=== PATIENT | female | born 1945 | race Caucasian/White ===

== ENCOUNTER 2016-12-12 03:52 | Inpatient (IN) | payer OTHER, MEDICARE ==
[2016-12-12] VITALS (8 sets, daily range): BP systolic 137–158; BP diastolic 60–80; PULSE 78–98; RESP 16–22; TEMP 98–98.6; O2SAT 95–97
[~2016-12-12 03:52] MED LIST: ASPI81 PO; BIOT2500 PO; CALC250T PO; FISH1000 PO; GLUC500C56 PO; LACT20SO4 PO; MIRA33502 PO; PRIN20TA2 PO; TAB-TAB PO
[2016-12-12] MEDS ORDERED: GLUC500C5 PO (04:13)
[2016-12-12] MEDS ORDERED: CALC600T4 PO (04:13)
[2016-12-12] MEDS ORDERED: ATOR20TA15 PO (04:13)
[2016-12-12] MEDS ORDERED: CELE1CAP8 PO (04:13)
[2016-12-12] MEDS ORDERED: LISI-515 PO (04:13)
[2016-12-12] MEDS ORDERED: LORA1POW7 (04:13)
--- NOTE | 2016-12-12 04:15 | PD ---
HPI Chief Complaint: Cold / Flu Symptoms Time Seen by Provider: 04:02 Travel History International Travel<30 days: No Contact w/Intl Traveler<30days: No Traveled to known affect area: No History of Present Illness HPI 71-year-old female came to the emergency room with her with history of some upper airway obstruction especially after she coughs. Patient says that she developed this cough 2 weeks ago out of nowhere. She did not know what could be causing it and went to see her primary care. She was started on loratadine which she has been taking. However for past 2 days each time she expels a big cough she has difficulty breathing in. She feels like she is choking and cannot get any air in. Her voice has gotten hoarse. No history of fever or chills. She has never had these symptoms in the past. Last night when the symptoms were progressively worsening she got worried and decided to come to the emergency room. She says that her throat feels scratchy and sore. While patient was talking to me suddenly she developed a cough and just like she described after she was done with the expiratory phase of the cough and went to inhale she was unable to take a deep breath in. Her lips started to turn dusky. This lasted for 10-15 seconds. She started to struggle to breathe a little and slowly was able to catch her breath. Her color started to return back to pink again. [facility] Past Medical History Narrative Medical List of her past medical history as reviewed from the nursing note. Arthritis: Yes Cancer: No High Cholesterol: Yes Diabetes: No Diminished Hearing: No Glaucoma: No Hepatitis: Yes Hiatal Hernia: No Hypertension: Yes Thyroid Disease: No Tetanus Vaccination: Unknown Influenza Vaccination: Yes Past Surgical History Gynecologic Surgery: Yes (TUBAL LIGATION) Oral Surgery: Yes (AHE 4 T&A) Other Surgery: Yes Social History Alcohol Use: Yes (SOCIALLY) Tobacco Use: No Substance Use: No Allergies-Medications (Allergen,Severity, Reaction): Coded Allergies: Cat Dander (Verified Allergy, Intermediate, RESP DISTRESS, 12/12/16) Lortab (Verified Allergy, Intermediate, RASH, 12/12/16) Oxycodone (Verified Allergy, Intermediate, RASH, 12/12/16) Sulfa (Verified Allergy, Intermediate, SULFA, 12/12/16) Comments List of allergies reviewed from the nursing note. Reported Meds & Prescriptions Reported Meds & Active Scripts Active Reported Celecoxib 200 Mg Cap 200 Mg PO BID Lisinopril 20 Mg Tab 20 Mg PO DAILY Loratadine (Loratadine (Bulk)) 1 Pow Pow Atorvastatin (Atorvastatin Calcium) 20 Mg Tab 20 Mg PO HS Glucosamine (Glucosamine Sulfate) 500 Mg Cap 500 Mg PO DAILY Calcium Carbonate 1,500 Mg Tab 1,500 Mg PO BID 1,500 mg calcium carbonate (600 mg elemental calcium) Narrative Medication List of her home medications reviewed from the nursing note. Review of Systems Except as stated in HPI: all other systems reviewed are Neg Physical Exam Narrative GENERAL: Awake, alert, anxious SKIN: Warm and dry. HEAD: Atraumatic. Normocephalic. EYES: Pupils equal and round. No scleral icterus. No injection or drainage. ENT: No nasal bleeding or discharge. Mucous membranes pink and moist. No swelling of her tongue or lips. NECK: Trachea midline. No JVD. CARDIOVASCULAR: Regular rate and rhythm. No murmur appreciated. RESPIRATORY: No accessory muscle use. Clear to auscultation. Breath sounds equal bilaterally. GASTROINTESTINAL: Abdomen soft, non-tender, nondistended. Hepatic and splenic margins not palpable. MUSCULOSKELETAL: No obvious deformities. No clubbing. No cyanosis. No edema. NEUROLOGICAL: Awake and alert. No obvious cranial nerve deficits. Motor grossly within normal limits. Normal speech. PSYCHIATRIC: Appropriate mood and affect; insight and judgment normal. Data Data Last Documented VS Vital Signs Date Time Temp Pulse Resp B/P Pulse Ox O2 Delivery O2 Flow Rate FiO2 12/12/16 04:09 16 98 Room Air 12/12/16 03:54 98.0 85 158/80 Orders Complete Blood Count With Diff (12/12/16 04:20) Basic Metabolic Panel (Bmp) (12/12/16 04:20) Iv Access Insert/Monitor (12/12/16 04:20) Ecg Monitoring (12/12/16 04:20) Oximetry (12/12/16 04:20) Oxygen Administration (12/12/16 04:20) Chest, Single Ap (12/12/16 04:20) Sodium Chloride 0.9% Flush (Ns Flush) (12/12/16 04:30) Dexamethasone Inj (Decadron Inj) (12/12/16 04:30) Ct Soft Tiss Neck W Iv Cont (12/12/16 ) Sodium Chlorid 0.9% 500 Ml Inj (Ns 500 M (12/12/16 05:45) Iohexol 350 Inj (Omnipaque 350 Inj) (12/12/16 05:44) Admit To Inpatient (12/12/16 ) Vital Signs (Adult) Q4H (12/12/16 06:20) Activity Oob With Assistance (12/12/16 06:20) Macerator Operator / Telemetry .CONTINUOUS (12/12/16 06:20) Sodium Chloride 0.9% Flush (Ns Flush) (12/12/16 06:30) Sodium Chloride 0.9% Flush (Ns Flush) (12/12/16 09:00) Basic Metabolic Panel (Bmp) (12/13/16 06:00) Complete Blood Count With Diff (12/13/16 06:00) Scd Bilateral/Knee High DANILO.BID (12/12/16 06:20) Naloxone Inj (Narcan Inj) (12/12/16 06:30) Inpatient Certification (12/12/16 ) Consult Ent (12/12/16 ) Admit Order (Ed Use Only) (12/12/16 06:28) Labs Laboratory Tests Test 12/12/16 04:35 White Blood Count 7.5 TH/MM3 Red Blood Count 4.58 MIL/MM3 Hemoglobin 13.1 GM/DL Hematocrit 40.2 % Mean Corpuscular Volume 87.9 FL Mean Corpuscular Hemoglobin 28.6 PG Mean Corpuscular Hemoglobin 32.6 % Concent Red Cell Distribution Width 13.2 % Platelet Count 212 TH/MM3 Mean Platelet Volume 9.9 FL Neutrophils (%) (Auto) 52.6 % Lymphocytes (%) (Auto) 32.9 % Monocytes (%) (Auto) 11.6 % Eosinophils (%) (Auto) 2.2 % Basophils (%) (Auto) 0.7 % Neutrophils # (Auto) 3.9 TH/MM3 Lymphocytes # (Auto) 2.5 TH/MM3 Monocytes # (Auto) 0.9 TH/MM3 Eosinophils # (Auto) 0.2 TH/MM3 Basophils # (Auto) 0.0 TH/MM3 CBC Comment DIFF FINAL Differential Comment Sodium Level 143 MEQ/L Potassium Level 4.4 MEQ/L Chloride Level 110 MEQ/L Carbon Dioxide Level 26.4 MEQ/L Anion Gap 7 MEQ/L Blood Urea Nitrogen 22 MG/DL Creatinine 1.02 MG/DL Estimat Glomerular Filtration 54 ML/MIN Rate Random Glucose 109 MG/DL Calcium Level 8.9 MG/DL MDM Medical Decision Making Medical Screen Exam Complete: Yes Emergency Medical Condition: Yes Medical Record Reviewed: Yes Differential Diagnosis Upper airway swelling, upper airway obstruction Narrative Course 5:46 AM blood test results are back. Patient has some renal insufficiency. I ordered 10 mg of IV Decadron for her. Awaiting for the CT soft tissue of the neck with contrast to be done and resulted. I'm giving her 500 ML of IV fluid bolus. 6:[address] scan shows a mass at the base of the tongue. Radiologist is recommending direct visualization. Patient will require direct visualization by ENT under monitored conditions. I let the patient know about the diagnosis and the need for admission preferably in the ICU under monitored setting. Patient understands and has agreed. Case has been discussed with the hospitalist was accepted it. Patient says she feels a little better after receiving the Decadron. Critical Care Narrative Aggregate critical care time was 30 minutes. Time to perform other separately billable procedures was not included in the critical care time. My time did not include minutes spent treating any other patients simultaneously or on activities that did not directly contribute to the patient's treatment. The services I provided to this patient were to treat and/or prevent clinically significant deterioration that could result in: Mass at the base of the tongue, upper airway obstruction I provided critical care services requiring my management, as noted below: Chart data review, documentation time, medication orders and management, vital sign assessments/reviewing monitor data, ordering and reviewing lab tests, ordering and interpreting/reviewing x-rays and diagnostic studies, care of the patient and discussion of the patient with the admitting physicians. Procedures EKG Prior to Arrival: No Diagnosis Primary Impression: Mass of tongue Additional Impressions: mass at the base of the tongue At risk for difficult insertion of breathing tube Qualified Code: T88.4XXA - At risk for difficult insertion of breathing tube, initial encounter Difficulty breathing Admitting Information Admitting Physician Requests: Admit Scripts Dexamethasone 4 Mg Tab4 Mg PO BID #30 TAB Ref 0 Prov:Mauricio Middleton MD 12/13/16 Pantoprazole 40 Mg Tab40 Mg PO DAILY #30 TAB Prov:Mauricio Middleton MD 12/13/16 Guaifenesin ER 12 HR (Mucinex ER 12 HR)600 Mg [id number] Mg PO BID #20 TAB Prov:Mauricio Middleton MD 12/13/16 Fluticasone Nasal [place] 50 Mcg/Act Naspr2 [place] NASAL DAILY PRN (postnasal drip ) #1 BOTTLE Prov:Mauricio Middleton MD 12/13/16 Cole Dent MD Dec 12, 2016 04:15
[2016-12-12] MEDS ORDERED: DEXAMETHASONE SOD PHOS 20 MG/5 ML VIAL IV PUSH ONE (04:30)
[2016-12-12] MEDS ORDERED: SODIUM CHLORIDE 0.9% FLUSH 5 ML FLUSH IVF PRN (04:30)
[2016-12-12 04:57] LABS: AUTOMATED NEUTROPHIL # 3.9 TH/MM3 (1.8-7.7); BASOPHIL % 0.7 % (0.0-2.0); EOSINOPHIL # 0.2 TH/MM3 (0-0.4); EOSINOPHIL % 2.2 % (0.0-4.0); HEMATOCRIT 40.2 % (35.0-46.0); HEMO FLAGS DIFF FINAL; LYMPH % 32.9 % (9.0-44.0); LYMPHOCYTE # 2.5 TH/MM3 (1.0-4.8); MEAN CELL VOLUME 87.9 FL (80.0-100.0); MEAN CORPUSCULAR HEMOGLOBIN 28.6 PG (27.0-34.0); MEAN CORPUSCULAR HGB CONC 32.6 % (32.0-36.0); MONO % 11.6 % (0.0-8.0); NEUT % 52.6 % (16.0-70.0); PLATELET COUNT 212 TH/MM3 (150-450); RED BLOOD COUNT 4.58 MIL/MM3 (4.00-5.30); RED CELL DISTRIBUTION WIDTH 13.2 % (11.6-17.2); WHITE BLOOD COUNT 7.5 TH/MM3 (4.0-11.0)
[2016-12-12 05:00] LABS: BICARBONATE 26.4 MEQ/L (21.0-32.0); POTASSIUM 4.4 MEQ/L (3.5-5.1)
--- NOTE | 2016-12-12 05:13 | RADRPT ---
EXAM DATE/TIME: 12/12/2016 04:26 [facility] COMPARISON: No previous studies available for comparison. INDICATIONS : Shortness of breath, cough for 2 weeks MEDICAL HISTORY : None. SURGICAL HISTORY : None. ENCOUNTER: Initial ACUITY: 2 weeks PAIN SCORE: 0/10 LOCATION: Bilateral chest FINDINGS: A single view of the chest demonstrates the lungs to be symmetrically aerated without evidence of mas s, infiltrate or effusion. The cardiomediastinal contours are unremarkable. Osseous structures are intact. CONCLUSION: No evidence of acute cardiopulmonary disease. Edilberto James MD on December 12, 2016 at 5:11 Board Certified Radiologist. This report was verified electronically.
[2016-12-12] MEDS ORDERED: IOHEXOL 350 MG/ML 10 ML VIAL (for RAD DIAG) IV ONE (05:44)
[2016-12-12] MEDS ORDERED: SODIUM CHLORID 0.9% 500 ML INJ 500 ML IV ONE (05:45)
--- NOTE | 2016-12-12 06:03 | RADRPT ---
EXAM DATE/TIME: 12/12/2016 05:39 [facility] COMPARISON: No previous studies available for comparison. INDICATIONS : Sore throat and flu-like symptoms. IV CONTRAST: 72 cc Omnipaque 350 (iohexol) IV RADIATION DOSE: 18.64 CTDIvol (mGy) MEDICAL HISTORY : Hypertension. SURGICAL HISTORY : Tubal ligation. ENCOUNTER: Initial ACUITY: 1 day PAIN SCALE: 4/10 LOCATION: neck TECHNIQUE: Volumetric scanning of the neck was performed. Using automated exposure control and adjustment of th e mA and/or kV according to patient size, radiation dose was kept as low as reasonably achievable to obtain optimal diagnostic quality images. FINDINGS: NASOPHARYNX: The nasopharyngeal airway has a normal configuration. No mucosal thickening or mass is seen. OROPHARYNX: 13 x 17 mm area of submucosal mass like fullness seen in the region of the left lingual tonsil, for e xample series 234. A mass would be suspected over abscess. LARYNX: The supraglottic, glottic, and infraglottic structures are intact. PARAPHARYNGEAL: The parapharyngeal space is intact. SALIVARY GLANDS: The parotid and submandibular glands are intact. LYMPH NODES: No enlarged or necrotic-appearing nodes. THYROID: 6 mm hypoechoic nodule of the right lobe. BONES: Unremarkable. CONCLUSION: 1. CT findings of concern for a mass in the region of the left tongue base/tonsil. Correlation with d irect visualization recommended. 2. 6 mm nodule the right lobe of the thyroid gland, nonspecific. Correlation with ultrasound recommen ded. 3. CT of the neck soft tissues otherwise within normal limits. Edilberto James MD on December 12, 2016 at 5:57 Board Certified Radiologist. This report was verified electronically.
[2016-12-12] MEDS ORDERED: NALOXONE HCL 0.4 MG/ML AMP IV PRN (06:30)
[2016-12-12] MEDS ORDERED: SODIUM CHLORIDE 0.9% FLUSH 5 ML FLUSH FLUSH PRN (06:30)
[2016-12-12] MEDS ORDERED: DOCUSATE SODIUM 50 MG/SENNA 8.6 MG TAB PO PRN (07:30)
[2016-12-12] MEDS ORDERED: ONDANSETRON HCL 4 MG/2 ML VIAL IV PRN (07:30)
[2016-12-12] MEDS ORDERED: ENALAPRILAT 1.25 MG/ML VIAL IV PRN (07:30)
[2016-12-12] MEDS ORDERED: CLINDAMYCIN INJ 600 MG in SODIUM CHLORIDE 0.9% INJ 100 ML IV SCH (07:30)
[2016-12-12] MEDS ORDERED: CALCIUM CARBONATE 500 MG CHEWABLE TAB CHEW PRN (07:30)
[2016-12-12] MEDS ORDERED: DOCUSATE SODIUM 100 MG CAP PO PRN (07:30)
[2016-12-12] MEDS ORDERED: cloNIDine HCL 0.1 MG TAB PO PRN (07:30)
[2016-12-12] MEDS ORDERED: RESP: ALBUTEROL 0.63 MG/3 ML NEB (PRN) NEB (07:45)
[2016-12-12] MEDS: PANTOPRAZOLE SODIUM 40 MG VIAL IV PUSH SCH (08:24)
[2016-12-12] MEDS: CLINDAMYCIN INJ 600 MG in SODIUM CHLORIDE 0.9% INJ 100 ML IV SCH ×3 (08:25→21:26)
[2016-12-12] MEDS: SODIUM CHLORIDE 0.9% FLUSH 5 ML FLUSH FLUSH SCH ×2 (08:25→20:10)
[2016-12-12] MEDS: SODIUM CHLOR 0.9% 1000 ML INJ 1,000 ML IV SCH ×2 (08:25→20:12)
--- NOTE | 2016-12-12 08:53 | HHI.HP ---
[facility] Service [facility] Primary Care Physician Wolf Medina MD Admission Diagnosis mass at the base of the tongue, upper airway obstruction Diagnoses: Chief Complaint: Cough, stridor Travel History International Travel<30 Days: No Contact w/Intl Traveler <30 Da: No Traveled to Known Affected Are: No History of Present Illness Patient is a 71-year-old white female with primary medical history of HTN, arthritis, HLD who came into the hospital with cough, sore throat, difficulty breathing when coughing. States that she's been having productive cough about 2 weeks ago. Expectorates white colored secretions. She went to her primary care provider and was given loratadine. States that loratadine helped postnasal drip minimizing her cough. However in the last 2 days, she's been having difficulty breathing when she is coughing, tightening of the throat unable to take deep breath with a feeling of choking sensation. Last night, symptoms have been worsening that she went to get examined in the emergency room. Witnessed episode at the ED patient suddenly developed cough and the same way as she described her symptoms of having choking sensation unable to breathe her lips started to turn dusky, lasted 10-15 seconds, struggled breathing noted but able to slowly catch her breath. She was given Decadron. Patient reports after she was given Decadron she felt a lot better. Hoarseness in her voice has improved. Coughing is also improved a little bit. Complaints of sore throat. Otherwise, denies pain and discomfort. Denies SOB/ dyspnea. Denies chest pain, palpitations, headaches, dizziness. Denies fevers, chills, n/ v/d. Denies dysphasia, weight loss, change in appetite, bowel and bladder habits. Neck CT showed CT findings of concern for a mass in the region of the left thumb base/tonsil. Correlation with direct visualization recommended. 6 mm nodule right lower parathyroid gland, nonspecific. Correlation with ultrasound recommended. CT of the neck soft tissue otherwise within normal limits. Chest x-ray showed no evidence of acute cardiopulmonary disease. Unremarkable CBC except for elevated mono percentage 11.6. BMP shows elevated chloride 110, B UN 22, creatinine 1.02, EGFR 54, random glucose 109. Review of Systems Other Negative except for what is noted on history of present illness. Past Family Social History Past Medical History Hepatitis HTN HLD Past Surgical History Tubal ligation hysterectomy Tonsillectomy Rotator Cuff Repair x2 Carpal Tunnel SX x2 Bunionectomy Reported Medications Celecoxib 200 Mg Cap 200 Mg PO BID Lisinopril 20 Mg Tab 20 Mg PO DAILY Loratadine (Loratadine (Bulk)) 1 Pow Pow Atorvastatin (Atorvastatin Calcium) 20 Mg Tab 20 Mg PO HS Glucosamine (Glucosamine Sulfate) 500 Mg Cap 500 Mg PO DAILY Calcium Carbonate 1,500 Mg Tab 1,500 Mg PO BID 1,500 mg calcium carbonate (600 mg elemental calcium) Allergies: Coded Allergies: Cat Dander (Verified Allergy, Intermediate, RESP DISTRESS, 12/12/16) Lortab (Verified Allergy, Intermediate, RASH, 12/12/16) Oxycodone (Verified Allergy, Intermediate, RASH, 12/12/16) Sulfa (Verified Allergy, Intermediate, SULFA, 12/12/16) Active Ordered Medications Current Medications Medications (Trade) Dose Ordered Sig/Christiana Route Start Time Stop Time Status Last Admin (NS Flush) 2 ml UNSCH PRN FLUSH 12/12/16 06:30 (NS Flush) 2 ml BID FLUSH 12/12/16 09:00 12/12/16 08:25 (Narcan Inj) 0.4 mg UNSCH PRN IV 12/12/16 06:30 (Decadron Inj) 4 mg Q6H IV PUSH 12/12/16 10:00 (Protonix Inj) 40 mg Q24H IV PUSH 12/12/16 08:00 12/12/16 08:24 (Zofran Inj) 4 mg Q6H PRN IV 12/12/16 07:30 (Colace) 100 mg BID PRN PO 12/12/16 07:30 (Carmen-Colace) 1 tab BID PRN PO 12/12/16 07:30 Calcium Carbonate 1000 mg 1,000 mg TID PRN CHEW 12/12/16 07:30 (NS 1000 ml Inj) 1,000 ml @ 75 mls/hr [id number] IV 12/12/16 08:00 12/12/16 08:25 (Vasotec Inj) 1.25 mg Q6H PRN IV 12/12/16 07:30 (Catapres) 0.1 mg Q6H PRN PO 12/12/16 07:30 (Lipitor) 20 mg HS PO 12/12/16 21:00 Lisinopril 20 mg 20 mg DAILY PO 12/12/16 09:00 (Cleocin Inj/NS Inj) 104 ml @ 208 mls/hr Q6H IV 12/12/16 08:00 12/12/16 08:25 (Mucinex Er) 600 mg BID PO 12/12/16 09:00 Family History Brother of metastatic cancer - ? Liver or lung Social History Reports occasional alcohol use Denies Tobacco Use Denies illicit drug use Physical Exam Vital Signs Vital Signs Date Time Temp Pulse Resp B/P Pulse Ox O2 Delivery O2 Flow Rate FiO2 12/12/16 07:11 82 18 151/67 97 Nasal Cannula 2 12/12/16 07:05 Nasal Cannula 2 12/12/16 04:09 16 98 Room Air 12/12/16 03:54 98.0 85 16 158/80 96 Room Air Physical Exam GENERAL: This is a well-nourished, well-developed patient, in no apparent distress. SKIN: No rashes, ecchymoses or lesions. Cool and dry. HEAD: Atraumatic. Normocephalic. No temporal or scalp tenderness. EYES: Pupils equal round and reactive. Extraocular motions intact. No scleral icterus. No injection or drainage. ENT: Nose without bleeding. Throat mild erythema, no exudate. Uvula midline. Airway patent. Voice nasal but states previously hoarse, improved with decadron use NECK: Trachea midline. No JVD or lymphadenopathy. Supple, nontender, no meningeal signs. CARDIOVASCULAR: Regular rate and rhythm without murmurs, gallops, or rubs. RESPIRATORY:Breath sounds equal bilaterally. No wheezes, rales, or rhonchi. Inspiratory stridor noted. GASTROINTESTINAL: Abdomen soft, non-tender, nondistended. No hepato-splenomegaly , or palpable masses. No guarding. Bowel sounds active 4 MUSCULOSKELETAL: Extremities without clubbing, cyanosis, or edema. No joint tenderness, effusion, or edema noted. No calf tenderness. Negative Homans sign bilaterally. NEUROLOGICAL: Awake and alert. Oriented x3. Motor and sensory grossly within normal limits. No focal neuro deficit Laboratory Laboratory Tests Test 12/12/16 04:35 White Blood Count 7.5 Red Blood Count 4.58 Hemoglobin 13.1 Hematocrit 40.2 Mean Corpuscular Volume 87.9 Mean Corpuscular Hemoglobin 28.6 Mean Corpuscular Hemoglobin 32.6 Concent Red Cell Distribution Width 13.2 Platelet Count 212 Mean Platelet Volume 9.9 Neutrophils (%) (Auto) 52.6 Lymphocytes (%) (Auto) 32.9 Monocytes (%) (Auto) 11.6 Eosinophils (%) (Auto) 2.2 Basophils (%) (Auto) 0.7 Neutrophils # (Auto) 3.9 Lymphocytes # (Auto) 2.5 Monocytes # (Auto) 0.9 Eosinophils # (Auto) 0.2 Basophils # (Auto) 0.0 CBC Comment DIFF FINAL Differential Comment Sodium Level 143 Potassium Level 4.4 Chloride Level 110 Carbon Dioxide Level 26.4 Anion Gap 7 Blood Urea Nitrogen 22 Creatinine 1.02 Estimat Glomerular Filtration 54 Rate Random Glucose 109 Calcium Level 8.9 Result Diagram: 12/12/165 12/12/16 0435 Imaging Last Impressions Chest X-Ray 12/12/16 0420 Signed Impressions: Service Date/Time: December 04:26 - CONCLUSION: No evidence of acute cardiopulmonary disease. Edilberto James MD Neck CT 12/12/16 0000 Signed Impressions: Service Date/Time: December 05:39 - CONCLUSION: 1. CT findings of concern for a mass in the region of the left tongue base/tonsil. Correlation with direct visualization recommended. 2. 6 mm nodule the right lobe of the thyroid gland, nonspecific. Correlation with ultrasound recommended. 3. CT of the neck soft tissues otherwise within normal limits. Edilberto James MD Assessment and Plan Problem List: (1) Mass of tongue ICD Code: R22.0 Status: Acute (2) At risk for difficult insertion of breathing tube ICD Code: T88.4XXA Status: Acute (3) Difficulty breathing ICD Code: R06.89 Status: Acute (4) HTN (hypertension) ICD Code: I10 Status: Chronic (5) Cough ICD Code: R05 Status: Acute Assessment and Plan Pt. is a 71 YO white female who came in to the hospital with upper airway obstruction. Neck CT showed CT findings of concern for a mass in the region of the left thumb base/tonsil. Correlation with direct visualization recommended. 6 mm nodule right lower parathyroid gland, nonspecific. Correlation with ultrasound recommended. CT of the neck soft tissue otherwise within normal limits. Chest x-ray showed no evidence of acute cardiopulmonary disease. Upper airway obstruction, mass in the region of the left tongue base/tonsil - Continue Decadron - ENT consulted input appreciated - Continue loratadine, guaifenesin - Start clindamycin IV - Albuterol when necessary - Monitor respiratory status - Transfer to intensive care unit for close monitoring. Nothing by mouth for now until seen by ENT for further recommendations. HTN - restart home med lisinopril 20 mg daily - Clonidine when necessary -Monitor BP trend - Follow up labs tomorrow Acute kidney injury - creatinine 1.02 - Avoid nephrotoxins, IV fluid hydration provided 500 mL - Recheck BMP tomorrow HLD - continue home meds atorvastatin DVT prop -early ambulation GI prop - pantoprazole Written by Heriberto Lira, acting as scribe for Dr. Middleton on 12/12/16 at 08:04. The documentation accurately reflects the work performed [id number] by me on at 13:18. Code Status Full code Discussed Condition With Patient, , nursing Physician Certification 2 Midnight Certification Type: Admission for Inpatient Services Order for Inpatient Services The services are ordered in accordance with Medicare regulations or non- Medicare payer requirements, as applicable. In the case of services not specified as inpatient-only, they are appropriately provided as inpatient services in accordance with the 2-midnight benchmark. Estimated LOS (days): 2 days is the estimated time the patient will need to remain in the hospital, assuming treatment plan goals are met and no additional complications. Post-Hospital Plan: Home Problem Qualifiers (1) At risk for difficult insertion of breathing tube: Qualified Code: T88.4XXA - At risk for difficult insertion of breathing tube, initial encounter Heriberto Gordillo Dec 12, 2016 08:53 Mauricio Middleton MD Dec 12, 2016 13:19
[2016-12-12] MEDS ORDERED: LISINOPRIL 20 MG TAB PO SCH (09:00)
[2016-12-12] MEDS: guaiFENesin E.R. 600 MG TAB PO SCH ×2 (09:00→20:10)
[2016-12-12] MEDS: LORATADINE 10 MG TAB PO SCH (10:00)
[2016-12-12] MEDS: DEXAMETHASONE SOD PHOS 4 MG/ML VIAL IV PUSH SCH ×3 (10:06→21:26)
[2016-12-12] MEDS ORDERED: LORazepam 2 MG/ML VIAL IV PUSH PRN (13:15)
[2016-12-12] MEDS ORDERED: ATORVASTATIN 20 MG TAB PO SCH (21:00)
--- NOTE | 2016-12-12 21:05 | MB ---
cc: CHANDRA GUPTA MD DATE OF CONSULTATION 12/12/16 CHIEF COMPLAINT Airway obstruction and mass at base of tongue noted. HISTORY OF PRESENT ILLNESS The patient is a 71-year-old female with multiple medical illnesses who presented to the emergency room with cough, sore throat, difficulty breathing when coughing. She noted productive cough within the last two weeks and was given Claritin. However, she has been having coughing with difficulty breathing and throat tightening whenever she tries to take a deep breath with a choking sensation. She went to the emergency room last night after having breathing issues. The patient notes that she goes from breathing normally to having episodes of choking sensation with an inability to breathe. The patient has gotten much better in the hospital since given Decadron and antibiotics. Her voice is improved as well as her coughing improved. The patient did have a neck CT that was concerning for a greater than a left 1.3 x 1.7 mm submucosal mass in the region of the left lingual tonsil. Suspicion was for mass over abscess. Of note the patient states that she has not had any regular tobacco use since close to 40 years ago and denies knowledge of any papillomavirus exposure. PHYSICAL EXAMINATION On my examination, the patient's airway is widely patent. On flexible fiberoptic laryngoscopy the patient was noted to have a strong gag reflex. Airway from base of tongue to the larynx was noted to be patent. The patient had no shortness of breath during the examination. Also with a deep bimanual examination of the oral cavity and oropharynx I did not feel any area of hardness concerning for carcinoma in this left base of tongue that was noted on CAT scan. However, the patient did have a gag reflex. After repeated attempts, I was able to get a thorough examination of the left tongue base. ASSESSMENT Left tongue base mass as well as a reactive airway. RECOMMENDATION The patient to get a PET CAT scan because of the left tongue base mass to rule out any kind of a carcinomatous process. I also recommend the patient get a pulmonary evaluation as per patient's reactive airway to hopefully get some insight as to what is triggering the episodes where she has the heavy cough with the shortness of breath interspersed between long periods of regular breathing without any issues. Thank you very much for this consultation. I recommend patient stay in house at least the patient gets the pulmonary evaluation to hopefully rule out what is causing the reactive airway issues as well. Chandra Gupta MD CCP/ /6:35 PM /8:47 PM
[2016-12-12] MEDS ORDERED: CHLORHEXIDINE GLUCONATE 2 % 1 PACK (2 CLOTHS)(extra cloths) TOP PRN (22:45)
[2016-12-13] VITALS: BP 108/55; PULSE 80; PULSE 83; RESP 22; TEMP 98.4; O2SAT 93
[2016-12-13] MEDS: CLINDAMYCIN INJ 600 MG in SODIUM CHLORIDE 0.9% INJ 100 ML IV SCH ×2 (01:08→09:17)
[2016-12-13 02:00] VITALS: PULSE 74
[2016-12-13 04:00] VITALS: BP 109/53; PULSE 67; PULSE 80; RESP 20; TEMP 98.4; O2SAT 94
[2016-12-13] MEDS ORDERED: CHLORHEXIDINE GLUCONATE 2 % 1 PACK (2 CLOTHS)(taper/protocol) TOP SCH (04:00)
[2016-12-13] MEDS: DEXAMETHASONE SOD PHOS 4 MG/ML VIAL IV PUSH SCH ×2 (04:09→08:21)
[2016-12-13 05:05] LABS: AUTOMATED NEUTROPHIL # 14.7 TH/MM3 (1.8-7.7); HEMO FLAGS DIFF FINAL; LYMPH % 8.2 % (9.0-44.0); LYMPHOCYTE # 1.4 TH/MM3 (1.0-4.8); MEAN CELL VOLUME 87.2 FL (80.0-100.0); MEAN CORPUSCULAR HEMOGLOBIN 28.7 PG (27.0-34.0); NEUT % 86.8 % (16.0-70.0); PLATELET COUNT 218 TH/MM3 (150-450); RED BLOOD COUNT 4.47 MIL/MM3 (4.00-5.30); RED CELL DISTRIBUTION WIDTH 13.2 % (11.6-17.2); WHITE BLOOD COUNT 16.9 TH/MM3 (4.0-11.0)
[2016-12-13 05:33] LABS: BICARBONATE 24.1 MEQ/L (21.0-32.0); MAGNESIUM 2.3 MG/DL (1.5-2.5); POTASSIUM 3.7 MEQ/L (3.5-5.1)
[2016-12-13 06:00] VITALS: PULSE 80
[2016-12-13 08:00] VITALS: BP 120/56; PULSE 96; RESP 22; TEMP 98.5; O2SAT 96
[2016-12-13] MEDS: guaiFENesin E.R. 600 MG TAB PO SCH (08:22)
[2016-12-13] MEDS: SODIUM CHLORIDE 0.9% FLUSH 5 ML FLUSH FLUSH SCH (08:22)
[2016-12-13] MEDS: PANTOPRAZOLE SODIUM 40 MG VIAL IV PUSH SCH (08:22)
[2016-12-13] MEDS: LORATADINE 10 MG TAB PO SCH (09:00)
[2016-12-13] MEDS ORDERED: FLUTICASONE PROPIONATE 50 MCG/ACT 16 GM NASAL SPRAY NASAL SCH (09:00)
[2016-12-13] MEDS ORDERED: FLUT50SP NASAL (11:29)
[2016-12-13] MEDS ORDERED: MUCI600T PO (11:29)
[2016-12-13] MEDS ORDERED: PANT40TA3 PO (11:29)
[2016-12-13] MEDS ORDERED: DEXA4TAB PO (11:29)
--- NOTE | 2016-12-13 11:29 | HHI.PR ---
Subjective Remarks Follow-up tongue mass. Feels much better and wants to go home. No difficulty swallowing or shortness of breath. She does not want to take Claritin anymore. Discussed with pulmonary discharge home with Decadron 4 mg twice a day until seen by him in the clinic discussed with RN Objective Vitals Vital Signs Date Time Temp Pulse Resp B/P Pulse Ox O2 Delivery O2 Flow Rate FiO2 12/13/16 06:00 80 12/13/16 04:00 67 12/13/16 04:00 98.4 80 20 109/53 94 12/13/16 02:00 74 12/13/16 00:00 80 12/13/16 00:00 98.4 83 22 108/55 93 12/12/16 22:00 78 12/12/16 20:00 98.5 80 20 137/60 95 12/12/16 20:00 95 12/12/16 18:00 98 12/12/16 16:00 98.6 91 22 151/70 95 12/12/16 14:00 93 I/O 12/12/16 12/12/16 12/12/16 12/13/16 12/13/16 12/13/16 07:00 15:00 23:00 07:00 15:00 23:00 Intake Total 124 ml 320 ml 380 ml Output Total 300 ml Balance -176 ml 320 ml 380 ml Intake Oral 240 ml 120 ml IV Total 124 ml 80 ml 260 ml Output Urine Total 300 ml # Voids 2 2 # Bowel Movements 0 0 Result Diagram: 12/13/16 0330 12/13/16 0330 Objective Remarks GENERAL: This is a well-nourished, well-developed patient, in no apparent distress. SKIN: No rashes, ecchymoses or lesions. Cool and dry. HEAD: Atraumatic. Normocephalic. No temporal or scalp tenderness. EYES: Pupils equal round and reactive. Extraocular motions intact. No scleral icterus. No injection or drainage. ENT: Nose without bleeding. Throat mild erythema, no exudate. Uvula midline. Airway patent. Voice nasal but states previously hoarse, improved with decadron use NECK: Trachea midline. No JVD or lymphadenopathy. Supple, nontender, no meningeal signs. CARDIOVASCULAR: Regular rate and rhythm without murmurs, gallops, or rubs. RESPIRATORY:Breath sounds equal bilaterally. No wheezes, rales, or rhonchi. Inspiratory stridor noted. GASTROINTESTINAL: Abdomen soft, non-tender, nondistended. No guarding. Bowel sounds active 4 MUSCULOSKELETAL: Extremities without clubbing, cyanosis, or edema. No joint tenderness, effusion, or edema noted. No calf tenderness. Negative Homans sign bilaterally. NEUROLOGICAL: Awake and alert. Oriented x3. Motor and sensory grossly within normal limits. No focal neuro deficit Procedures direct laryngoscopy A/P Problem List: (1) Mass of tongue ICD Code: R22.0 Status: Acute (2) At risk for difficult insertion of breathing tube ICD Code: T88.4XXA Status: Acute (3) Difficulty breathing ICD Code: R06.89 Status: Acute (4) HTN (hypertension) ICD Code: I10 Status: Chronic (5) Cough ICD Code: R05 Status: Acute Assessment and Plan Pt. is a 71 YO white female who came in to the hospital with upper airway obstruction. Neck CT showed CT findings of concern for a mass in the region of the left thumb base/tonsil. Correlation with direct visualization recommended. 6 mm nodule right lower parathyroid gland, nonspecific. Correlation with ultrasound recommended. CT of the neck soft tissue otherwise within normal limits. Chest x-ray showed no evidence of acute cardiopulmonary disease. Upper airway obstruction, mass in the region of the left tongue base/tonsil improved with no respiratory compromise. Currently on room air - Continue Decadron - ENT consulted input appreciated status post direct laryngoscopy. Recommended PET scan - Continue loratadine, guaifenesin -Discontinue clindamycin IV - Albuterol when necessary - Monitor respiratory status -Stable may be discharged home HTN -discontinue lisinopril possibly contributing to cough - Clonidine when necessary -Monitor BP trend - Follow up labs tomorrow Acute kidney injury - creatinine 1.02 - Avoid nephrotoxins, IV fluid hydration provided 500 mL - Improved avoid nephrotoxins HLD - continue home meds atorvastatin Hyperglycemia. monitor FS with SSC. A1c 6.1 Thyroid nodule. Outpatient f/u DVT prop -early ambulation GI prop - pantoprazole Problem Qualifiers (1) At risk for difficult insertion of breathing tube: Qualified Code: T88.4XXA - At risk for difficult insertion of breathing tube, initial encounter Mauricio Middleton MD Dec 13, 2016 11:29
--- NOTE | 2016-12-13 11:29 | HHI.DCPOC ---
Discharge Care Plan Diagnosis: (1) Mass of tongue Your Health Problems Are: Difficulty with ADL Exercise Tolerance Goals to Promote Your Health * To prevent worsening of your condition and complications * To maintain your health at the optimal level Directions to Meet Your Goals Take your medications as prescribed Follow your dietary instruction Follow activity as directed Keep your appointments as scheduled Take your immunizations and boosters as scheduled If your symptoms worsen call your PCP, if no PCP go to Urgent Care Center or Emergency Room Smoking is Dangerous to Your Health. Avoid second hand smoke Call the 24-hour hour crisis hotline for domestic abuse at Mauricio Middleton MD Dec 13, 2016 11:29
[2016-12-13 12:00] VITALS: PULSE 98
[2016-12-13] MEDS ORDERED: PANTOPRAZOLE SOD 40 MG DELAYED RELEASE TAB PO SCH (12:00)
--- NOTE | 2016-12-13 12:27 | MB ---
cc: MARLON HOOVER MD DATE OF CONSULTATION: 12/13/[address] Middleton. REASON FOR CONSULTATION Shortness of breath. HISTORY OF PRESENT ILLNESS Ms. Duke is a pleasant 71-year-old female with hypertension, hyperlipidemia. She was taking lisinopril and takes Celebrex for her arthritis. She came to the hospital with 1 week history of cough and she took some Clarinex, did not help her. Two days ago she started having difficulty breathing and she said that she was not able to take enough breath in, did not have any fever or chills or night sweats, no chest pain with these symptoms. She came to the hospital. She had a CT scan of the neck done which shows that she had mass at the base of the tongue and 60 mm nodule in the thyroid gland. The patient was seen by Dr. Chandra Gupta, ENT and he advised a PET scan. The patient after Decadron she feels so much better. Does not have any shortness of breath. She is on room air. No wheezing. No tightness in the chest. PAST MEDICAL HISTORY Past medical history is significant for history of hypertension, arthritis. MEDICATIONS She is currently takin. Protonix 40 mg a day. 2. Flonase nasal sprayer. 3. Albuterol inhaler. 4. Lipitor 20 mg a day. 5. Lorazepam 0.5 mg p.r.n. 6. Claritin 10 mg a day. 7. Guaifenesin 600 mg twice a day. 8. Clindamycin IV. ALLERGIES She is allergic to CAT DANDER, OXYCODONE AND SULFA. SOCIAL HISTORY She is for 58 years. 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 She has history of smoking for 20 some years, she quit 25 years ago. No alcohol use. FAMILY HISTORY She is , she had two children. REVIEW OF SYSTEMS Normally she and active. No change in her weight. No difficulty swallowing. No fever or chills. No asthma or emphysema. PHYSICAL EXAMINATION GENERAL: Well-built, well-nourished female not in any acute distress. VITAL SIGNS: Blood pressure 109/53, heart rate 67, respiration 18, temperature 98.4. HEENT: Pupils are equal and reactive to light. Oral mucosa, nasal mucosa normal. NECK: Supple. JVP not raised. CHEST: Equal air entry bilaterally. No rhonchi. CVS: S1, S2 normal. ABDOMEN: Benign. IMPRESSION 1. Shortness of breath and reactive airway disease and possibility of reaction to DAVID inhibitor. 2. Mass at base of the tongue. 3. Hypertension. 4. Arthritis. PLAN Discussed with the patient and her at the bedside. Will give her Decadron 4 mg twice a day, albuterol inhaler as needed. Discontinue DAVID inhibitor. Check her bedside PFT. She is going to have a PET scan as an outpatient and follow up with Dr. Gupta. I will follow up in my office in 10 days. I discussed the patient's condition with Dr. Middleton at the bedside. Further treatment will depend on the course in the hospital. Thank you Dr. Middleton for this consultation. MD PANFILO Shah/BRENDEN /11:22 AM /11:44 AM ROSETTA
[2016-12-13 13:52] LABS: HEMOGLOBIN A1a 1.5 %; HEMOGLOBIN Ao 82.4 %; HEMOGLOBIN LA1C 2.6 %; HEMOGLOBIN P3 4.7 %
--- NOTE | 2016-12-13 16:10 | HHI.DS ---
Discharge Summary Admission Date Dec 12, 2016 at 06:30 Discharge Date: Dec 13, 2016 Admitting Diagnosis mass at the base of the tongue, upper airway obstruction (1) Mass of tongue ICD Code: R22.0 Diagnosis: Principal (2) Difficulty breathing ICD Code: R06.89 Diagnosis: Principal (3) HTN (hypertension) ICD Code: I10 Diagnosis: Principal (4) Cough ICD Code: R05 Diagnosis: Principal Procedures direct laryngoscopy Brief History - From Admission Patient is a 71-year-old white female with primary medical history of HTN, arthritis, HLD who came into the hospital with cough, sore throat, difficulty breathing when coughing. States that she's been having productive cough about 2 weeks ago. Expectorates white colored secretions. She went to her primary care provider and was given loratadine. States that loratadine helped postnasal drip minimizing her cough. However in the last 2 days, she's been having difficulty breathing when she is coughing, tightening of the throat unable to take deep breath with a feeling of choking sensation. Last night, symptoms have been worsening that she went to get examined in the emergency room. Witnessed episode at the ED patient suddenly developed cough and the same way as she described her symptoms of having choking sensation unable to breathe her lips started to turn dusky, lasted 10-15 seconds, struggled breathing noted but able to slowly catch her breath. She was given Decadron. Patient reports after she was given Decadron she felt a lot better. Hoarseness in her voice has improved. Coughing is also improved a little bit. Complaints of sore throat. Otherwise, denies pain and discomfort. Denies SOB/ dyspnea. Denies chest pain, palpitations, headaches, dizziness. Denies fevers, chills, n/ v/d. Denies dysphasia, weight loss, change in appetite, bowel and bladder habits. Neck CT showed CT findings of concern for a mass in the region of the left thumb base/tonsil. Correlation with direct visualization recommended. 6 mm nodule right lower parathyroid gland, nonspecific. Correlation with ultrasound recommended. CT of the neck soft tissue otherwise within normal limits. Chest x-ray showed no evidence of acute cardiopulmonary disease. Unremarkable CBC except for elevated mono percentage 11.6. BMP shows elevated chloride 110, B UN 22, creatinine 1.02, EGFR 54, random glucose 109. CBC/BMP: 12/13/16 0330 12/13/16 0330 Significant Findings Laboratory Tests Test 12/12/16 12/13/16 04:35 03:30 Monocytes (%) (Auto) 11.6 % (0.0-8.0) Chloride Level 110 MEQ/L (98-107) Blood Urea Nitrogen 22 MG/DL (7-18) Creatinine 1.02 MG/DL (0.50-1.00) Estimat Glomerular Filtration 54 ML/MIN (>89) 63 ML/MIN (>89) Rate Random Glucose 109 MG/DL 142 MG/DL (74-106) (74-106) White Blood Count 16.9 TH/MM3 (4.0-11.0) Neutrophils (%) (Auto) 86.8 % (16.0-70.0) Lymphocytes (%) (Auto) 8.2 % (9.0-44.0) Neutrophils # (Auto) 14.7 TH/MM3 (1.8-7.7) Hemoglobin A1c 6.1 % (4.3-6.0) PE at Discharge GENERAL: This is a well-nourished, well-developed patient, in no apparent distress. SKIN: No rashes, ecchymoses or lesions. Cool and dry. HEAD: Atraumatic. Normocephalic. No temporal or scalp tenderness. EYES: Pupils equal round and reactive. Extraocular motions intact. No scleral icterus. No injection or drainage. ENT: Nose without bleeding. Throat mild erythema, no exudate. Uvula midline. Airway patent. Voice nasal but states previously hoarse, improved with decadron use NECK: Trachea midline. No JVD or lymphadenopathy. Supple, nontender, no meningeal signs. CARDIOVASCULAR: Regular rate and rhythm without murmurs, gallops, or rubs. RESPIRATORY:Breath sounds equal bilaterally. No wheezes, rales, or rhonchi. Inspiratory stridor noted. GASTROINTESTINAL: Abdomen soft, non-tender, nondistended. No guarding. Bowel sounds active 4 MUSCULOSKELETAL: Extremities without clubbing, cyanosis, or edema. No joint tenderness, effusion, or edema noted. No calf tenderness. Negative Homans sign bilaterally. NEUROLOGICAL: Awake and alert. Oriented x3. Motor and sensory grossly within normal limits. No focal neuro deficit Hospital Course Pt. is a 71 YO white female who came in to the hospital with upper airway obstruction. Neck CT showed CT findings of concern for a mass in the region of the left thumb base/tonsil. Correlation with direct visualization recommended. 6 mm nodule right lower parathyroid gland, nonspecific. Correlation with ultrasound recommended. CT of the neck soft tissue otherwise within normal limits. Chest x-ray showed no evidence of acute cardiopulmonary disease. Upper airway obstruction, mass in the region of the left tongue base/tonsil improved with no respiratory compromise. Currently on room air - Continue Decadron - ENT consulted input appreciated status post direct laryngoscopy. Recommended PET scan o/p - Continue loratadine, guaifenesin -Discontinue clindamycin IV - Albuterol when necessary - Monitor respiratory status -Stable may be discharged home SOB. Etiology to be determined. CXR negative. Fr PFTs s/p pulmo eval HTN -discontinue lisinopril possibly contributing to cough - Clonidine when necessary -Monitor BP trend - Follow up labs tomorrow Acute kidney injury - creatinine 1.02 - Avoid nephrotoxins, IV fluid hydration provided 500 mL - Improved avoid nephrotoxins HLD - continue home meds atorvastatin Hyperglycemia. monitor FS with SSC. A1c 6.1 Thyroid nodule. Outpatient f/u DVT prop -early ambulation GI prop - pantoprazole Pt Condition on Discharge: Stable Discharge Disposition: Discharge Home Discharge Time: <= 30 minutes Discharge Instructions DIET: Follow Instructions for: Heart Healthy Diet Activities you can perform: Regular-No Restrictions Activities to Avoid: Driving Follow up Referrals: Ear Nose Throat - 1 Week PCP Follow-up - 2-3 Days Pulmonology - 2 Weeks New Medications: Dexamethasone (Dexamethasone) 4 Mg Tab 4 MG PO BID Control Inflammation #30 Ref 0 TAB Fluticasone Nasal [place] (Fluticasone Nasal [place]) 50 Mcg/Act Naspr 2 SPRAY NASAL DAILY PRN postnasal drip #1 BOTTLE Guaifenesin ER 12 HR (Mucinex ER 12 HR) 600 Mg Anthony 600 MG PO BID cough #20 TAB Pantoprazole (Pantoprazole) 40 Mg Tab 40 MG PO DAILY Manage Heartburn #30 TAB Continued Medications: Atorvastatin (Atorvastatin) 20 Mg Tab 20 MG PO HS Cholesterol Management #30 Ref 0 TAB Calcium Carbonate (Calcium Carbonate) 1,500 Mg Tab 1500 MG PO BID 1,500 mg calcium carbonate (600 mg elemental calcium) Calcium Supplement Ref 0 TAB Celecoxib (Celecoxib) 200 Mg Cap 200 MG PO BID Pain Management Ref 0 CAP Glucosamine (Glucosamine) 500 Mg Cap 500 MG PO DAILY Herbal Supplements Ref 0 CAP Mauricio Middleton MD Dec 13, 2016 16:10
--- NOTE | 2016-12-16 10:24 | RSPPFT ---
DATE OF PROCEDURE: 12/13/16 COMMENTS: Spirometry shows FVC of 2.4 at 86% of predicted, FEV1 of 1.8 at 83%, FEV1/FVC ratio is normal. Flow is normal at FEF 25-75. There is no response after acutely inhaled bronchodilator treatment. Flow volume loop indicates an obstructive pattern. IMPRESSION: 1. Normal spirometry. 2. No response to bronchodilator treatment.
[2017-02-18] MEDS ORDERED: REFR0.5D4 EACH EYE (14:08)
== END 2016-12-13 13:10 | disposition home or self-care (01) | DRG 158 ==
LOC: NEPC 03:52 → NEDA 06:30 → HIMW 12:55
PROVIDERS: ADMIT Internal Medicine; ATTEND Internal Medicine
PROC: 0CJS8ZZ Inspection of Larynx, Via Natural or Artificial Opening Endoscopic (ICD-10-PCS; principal; 2016-12-12)
DX: K14.9 Disease of tongue, unspecified (principal); N17.9 Acute kidney failure, unspecified; I10 Essential (primary) hypertension; E78.5 Hyperlipidemia, unspecified; R73.9 Hyperglycemia, unspecified; E04.1 Nontoxic single thyroid nodule; J45.909 Unspecified asthma, uncomplicated; M19.90 Unspecified osteoarthritis, unspecified site; Z87.891 Personal history of nicotine dependence
CPT/HCPCS: 70491; 71010; 80048; 83036; 83735; 85025; 87641; 94060; 96374; 96375; C9113; J1100; J7030; J7040; Q9967